=== PATIENT | female | born 1950 | race Two or more races ===

== ENCOUNTER → 2019-03-09 | Outpatient (CLI) | payer OTHER ==
[2019-03-09 09:29] LABS: Basophils # (auto) 0 uL; Basophils % (auto) 0.5 % (0.0-2.0); Eosinophils # (auto) 0.1 uL; Eosinophils % (auto) 1.6 % (0.0-7.0); Hematocrit 44.3 % (36.0-46.0); Hemoglobin 15.2 g/dL (12.2-16.2); Lymphocytes # (auto) 1.6 uL; Lymphocytes % (auto) 24.5 % (10.0-50.0); Mean Corpuscular Hemoglobin 29.9 pg (28.0-32.0); Mean Corpuscular Hgb Conc. 34.2 g/dL (32.0-36.0); Mean Corpuscular Volume 87.3 fL (80.0-100.0); Monocytes # (auto) 0.6 uL; Monocytes % (auto) 8.9 % (0.0-12.0); Neutrophils # (auto) 4.2 uL; Neutrophils % (auto) 64.5 % (37.0-80.0); Nucleated Red Blood Cells % 0.2 %; Platelet Count (auto) 156 10^3/uL (140-450); Red Blood Cells 5.08 10^6/uL (4.0-5.20); Red Cell Distribution Width 12.8 % (11.8-14.3); White Blood Cell 6.4 10^3/uL (4.4-10.8)
[2019-03-09 09:50] LABS: Urine Bacteria NONE SEEN /hpf (None Seen); Urine Blood Negative /uL (Negative); Urine Mucus FEW (None Seen); Urine Specific Gravity 1.017 (1.001-1.035); Urine WBC 6 /hpf (0 - 5)
[2019-03-09 10:08] LABS: Potassium 4.1 mmol/L (3.5-5.1)
[2019-03-09 10:24] LABS: Albumin 3.6 g/dL (3.4-5.0); Bilirubin, Total 0.7 mg/dL (0.2-1.0); Calcium 9.3 mg/dL (8.5-10.1); Total Protein 8.1 g/dL (6.4-8.2)
== END | disposition home or self-care (01) ==
LOC: LAB 08:04
PROVIDERS: ATTEND Internal Medicine Nephrology
DX: I10 Essential (primary) hypertension (principal); E66.9 Obesity, unspecified
CPT/HCPCS: 36415; 80053; 80061; 81001; 84443; 85025

== ENCOUNTER → 2019-04-09 | Outpatient (CLI) | payer OTHER | END | disposition home or self-care (01) | LOC: LAB 07:15 | PROVIDERS: ATTEND Internal Medicine Nephrology | DX: N39.0 Urinary tract infection, site not specified (principal) | CPT/HCPCS: 87086 ==

== ENCOUNTER → 2019-05-07 | Outpatient (CLI) | payer OTHER ==
[2019-05-07 08:21] LABS: Urine Bacteria NONE SEEN /hpf (None Seen); Urine Blood Negative /uL (Negative); Urine Budding Yeast OCCASIONAL /hpf (None Seen); Urine Specific Gravity 1.042 (1.001-1.035); Urine WBC 1 /hpf (0 - 5)
== END | disposition home or self-care (01) ==
LOC: LAB 07:16
PROVIDERS: ATTEND Internal Medicine Nephrology
DX: N39.0 Urinary tract infection, site not specified (principal)
CPT/HCPCS: 81001; 87086; 87088; 87186

== ENCOUNTER 2019-05-18 10:03 | Inpatient (IN) | payer OTHER ==
[~2019-05-18] VITALS: Ht 162.6 cm; Wt 87.4 kg
[2019-05-18] MEDS ORDERED: SODIUM CHLORIDE 0.9% 1,000 ML IVB ONE (10:38)
[2019-05-18] MEDS ORDERED: SODIUM CHLORIDE 0.9% 1,000 ML IV ONE (10:38)
[2019-05-18 11:06] LABS: Basophils # (auto) 0 10 ^3/uL (0-0.2); Basophils % (auto) 0.2 % (0.0-2.0); Eosinophils # (auto) 0 10 ^3/uL (0-0.8); Hemoglobin 16.1 g/dL (12.2-16.2); Mean Corpuscular Hemoglobin 29.8 pg (28.0-32.0); Monocytes # (auto) 0.7 10 ^3/uL (0-1.3)
[2019-05-18 11:07] LABS: Lymphocytes # (auto) 0.9 10 ^3/uL (0.4-5.4); Lymphocytes % (auto) 9.6 % (10.0-50.0); Mean Corpuscular Hgb Conc. 28.2 g/dL (32.0-36.0); Mean Corpuscular Volume 105.7 fL (80.0-100.0); Monocytes % (auto) 7.6 % (0.0-12.0); Neutrophils # (auto) 7.7 10 ^3/uL (1.6-8.6); Neutrophils % (auto) 82.6 % (37.0-80.0); Platelet Count (auto) 189 10^3/uL (140-450); Red Cell Distribution Width 15.6 % (11.8-14.3); White Blood Cell 9.3 10^3/uL (4.4-10.8)
[2019-05-18 11:08] LABS: Hematocrit 57.1 % (36.0-46.0)
[2019-05-18 11:18] LABS: INR 1.13 (0.9-1.15); Partial Thromboplastin Time 22.9 sec (23.64-32.05)
[2019-05-18 11:23] LABS: Albumin 3.8 g/dL (3.4-5.0); Anion Gap 23 (5-15); Blood Alcohol < 3.0 mg/dL (0-5); Blood Urea Nitrogen 48 mg/dL (7-18); Calcium 9.9 mg/dL (8.5-10.1); Carbon Dioxide 11 mmol/L (21-32); Chloride 113 mmol/L (98-107); Potassium 4.6 mmol/L (3.5-5.1); Sodium 147 mmol/L (136-145)
[2019-05-18 11:27] LABS: Alanine Aminotransferase 62 U/L (13-56); Alkaline Phosphatase 173 U/L (45-117); Aspartate Aminotransferase 51 U/L (15-37); Bilirubin, Total 0.7 mg/dL (0.2-1.0); GFR African American 22 mL/min; GFR Non-African American 18 mL/min; Total Protein 8.7 g/dL (6.4-8.2)
[2019-05-18] MEDS: SODIUM CHLORIDE 0.9% 1,000 ML IV SCH ×3 (11:43→20:31)
[2019-05-18] MEDS ORDERED: DEXTROSE (50%) 50ML SYRG IV PRN (11:45)
[2019-05-18 12:29] LABS: Glucose 1323 mg/dL (74-106)
[2019-05-18] MEDS: InsuLIN R (HUMAN) 100 UNITS in SODIUM CHL 0.9% 99 ML IV SCH ×2 (12:48→22:44)
[2019-05-18 13:28] LABS: BUN/Creatinine Ratio 18.7; Calcium 9.8 mg/dL (8.5-10.1); Potassium 4.6 mmol/L (3.5-5.1)
[2019-05-18 13:35] LABS: Lactic Acid w/Reflex 2.5 mmol/L (0.4-2.0)
[2019-05-18 13:37] LABS: Phosphorus 4.2 mg/dL (2.5-4.90)
[2019-05-18] MEDS ORDERED: ONDANSETRON HCL 4 MG/2 ML VIAL IV PRN (13:45)
[2019-05-18] MEDS ORDERED: MORPHINE SULF INJ 2 MG/ML SYRINGE 1ML IV PRN ×2 (13:45)
[2019-05-18] MEDS ORDERED: ACETAMINOPHEN 500 MG TAB PO PRN (13:45)
[2019-05-18] MEDS ORDERED: InsuLIN REG 1unit/0.01ml Soln (100units/ml) IV ONE (13:45)
[2019-05-18] MEDS ORDERED: NITROGLYCERIN 0.4 MG SL TAB SL PRN (13:45)
[2019-05-18] MEDS: ACCU-CHEK COMFORT CURVE STRIP VI SCH ×6 (14:42→22:29)
[2019-05-18 14:43] LABS: Urine WBC None Seen /hpf (0 - 5)
[2019-05-18 15:01] LABS: Urine Bacteria NONE SEEN /hpf (None Seen); Urine Blood 1+ /uL (Negative); Urine Mucus FEW (None Seen); Urine Specific Gravity 1.032 (1.001-1.035)
[2019-05-18 15:05] LABS: Alcohol, Urine < 3.0 mg/dL (0-5); Amphetamine Screen, Urine NEGATIVE (NEGATIVE); Barbiturate Scree,Urine NEGATIVE (NEGATIVE); Benzodiazephine Screen, Urine NEGATIVE (NEGATIVE); Cannabinoid Screen, Urine NEGATIVE (NEGATIVE); Cocaine Screen, Urine NEGATIVE (NEGATIVE); Opiate Scree,Urine NEGATIVE (NEGATIVE); Phencyclidine Screen, Urine NEGATIVE (NEGATIVE)
[2019-05-18] MEDS ORDERED: SODIUM CHLORIDE 0.9% 1,000 ML IV SCH (15:43)
[2019-05-18] MEDS ORDERED: LORazepam 2MG/ML-1ML VIAL IV ONE (21:45)
[2019-05-18] MEDS: METOPROLOL TARTRATE 25 MG TAB PO SCH (22:00)
[2019-05-18 22:27] LABS: Anion Gap 10 (5-15); BUN/Creatinine Ratio 22.6; Blood Urea Nitrogen 42 mg/dL (7-18); Calcium 9.6 mg/dL (8.5-10.1); Carbon Dioxide 20 mmol/L (21-32); Chloride 137 mmol/L (98-107); GFR African American 35 mL/min; GFR Non-African American 29 mL/min; Glucose 391 mg/dL (74-106); Potassium 3.4 mmol/L (3.5-5.1)
[2019-05-18] MEDS: FAMOTIDINE (10MG/ML) 2ML VL IV SCH (22:28)
[2019-05-18 22:31] LABS: Sodium 167 mmol/L (136-145)
[2019-05-18] MEDS ORDERED: SOD CHL 0.45% 1,000 ML IV SCH (22:45)
[2019-05-19] MEDS: ACCU-CHEK COMFORT CURVE STRIP VI SCH ×13 (00:08→22:49)
[2019-05-19] MEDS: SODIUM CHLORIDE 0.9% 1,000 ML IV SCH ×2 (00:23→08:04)
[2019-05-19 05:29] LABS: BUN/Creatinine Ratio 24.6; Calcium 9.6 mg/dL (8.5-10.1); Potassium 3.4 mmol/L (3.5-5.1)
[2019-05-19] MEDS ORDERED: POTASSIUM CHL 20 Meq TABLET PO ONE (06:15)
[2019-05-19] MEDS ORDERED: SOD CHL 0.45% 1,000 ML IV SCH (06:45)
[2019-05-19 06:51] LABS: Urine Amorphous Crystal FEW /hpf (None Seen); Urine Bacteria NONE SEEN /hpf (None Seen); Urine Blood 1+ /uL (Negative); Urine Mucus FEW (None Seen); Urine Specific Gravity 1.032 (1.001-1.035); Urine WBC 30 /hpf (0 - 5); Urine WBC Clumps PRESENT /hpf (None Seen)
[2019-05-19] MEDS ORDERED: DEXTROSE (50%) 50ML SYRG IV PRN ×2 (08:30→09:45)
[2019-05-19] MEDS ORDERED: INSULIN LANTUS (GLARGINE) 1 /0.01ml (100units/ml) SC SCH (08:30)
[2019-05-19] MEDS: SOD CHL 0.45% 1,000 ML IV SCH ×2 (08:51→09:30)
[2019-05-19] MEDS ORDERED: LORazepam 0.5 MG TAB PO PRN (09:30)
[2019-05-19] MEDS ORDERED: D5W 5% 1,000 ML IV ONE (09:45)
[2019-05-19] MEDS: D5W 5% IV SCH ×2 (09:53→14:02)
[2019-05-19] MEDS: FAMOTIDINE (10MG/ML) 2ML VL IV SCH (09:56)
[2019-05-19] MEDS: METOPROLOL TARTRATE 25 MG TAB PO SCH ×2 (09:56→23:57)
[2019-05-19] MEDS ORDERED: ACCU-CHEK COMFORT CURVE STRIP VI SCH (12:00)
[2019-05-19] MEDS ORDERED: InsuLIN REG 1unit/0.01ml Soln (100units/ml) SC SCH (12:00)
[2019-05-19] MEDS: InsuLIN REG 1unit/0.01ml Soln (100units/ml) SC SCH ×3 (12:35→22:46)
[2019-05-19 14:04] LABS: Basophils # (auto) 0.1 10 ^3/uL (0-0.2); Basophils % (auto) 0.5 % (0.0-2.0); Eosinophils # (auto) 0.1 10 ^3/uL (0-0.8); Eosinophils % (auto) 0.4 % (0.0-7.0); Hemoglobin 14.3 g/dL (12.2-16.2); Lymphocytes # (auto) 1.9 10 ^3/uL (0.4-5.4); Lymphocytes % (auto) 13.6 % (10.0-50.0); Mean Corpuscular Hemoglobin 29.7 pg (28.0-32.0); Mean Corpuscular Hgb Conc. 33.3 g/dL (32.0-36.0); Mean Corpuscular Volume 89.1 fL (80.0-100.0); Monocytes # (auto) 0.9 10 ^3/uL (0-1.3); Monocytes % (auto) 6.4 % (0.0-12.0); Neutrophils # (auto) 11.3 10 ^3/uL (1.6-8.6); Neutrophils % (auto) 79.1 % (37.0-80.0); Platelet Count (auto) 128 10^3/uL (140-450); Red Blood Cells 4.83 10^6/uL (4.0-5.20); Red Cell Distribution Width 14.1 % (11.8-14.3); White Blood Cell 14.3 10^3/uL (4.4-10.8)
[2019-05-19] MEDS ORDERED: InsuLIN REG 1unit/0.01ml Soln (100units/ml) IV ONE (14:15)
[2019-05-19 14:23] LABS: BUN/Creatinine Ratio 24.5; Calcium 8.7 mg/dL (8.5-10.1); Potassium 3.7 mmol/L (3.5-5.1)
[2019-05-19] MEDS ORDERED: cefTRIAXone 1GM/50ML D5W 50 ML IV ONE (16:45)
[2019-05-19] MEDS ORDERED: D5W 5% 1,000 ML IV SCH (19:30)
[2019-05-19] MEDS: INSULIN LANTUS (GLARGINE) 1 /0.01ml (100units/ml) SC SCH (22:47)
[2019-05-20] VITALS (8 sets, daily range): BP systolic 110–131; BP diastolic 55–81
--- NOTE | 2019-05-20 01:23 | NUR ---
received report from er nurse poc reviewed
--- NOTE | 2019-05-20 01:35 | NUR ---
pt transferred into rm 261, resp even and unlabored on 1.5 l n/c. denies pain or discomfort, ax3, sluggish responds appropriate, d5 iv fluid infusing as ordered, side rails up call light within reach, pt able to follow directions
[2019-05-20] MEDS: ACCU-CHEK COMFORT CURVE STRIP VI SCH ×7 (02:00→21:17)
[2019-05-20] MEDS: InsuLIN REG 1unit/0.01ml Soln (100units/ml) SC SCH ×6 (04:15→21:19)
[2019-05-20] MEDS ORDERED: AMLO5TAB15 PO ×2 (04:28→09:46)
[2019-05-20] MEDS ORDERED: CAR3125T PO (04:29)
[2019-05-20] MEDS ORDERED: ASPI-404 PO (04:30)
--- NOTE | 2019-05-20 04:30 | NUR ---
resting quietly arousable no s/s of discomfort
--- NOTE | 2019-05-20 05:46 | NUR ---
awake more alert, no c/o discomfort, call light within reach,
[2019-05-20 05:53] LABS: Basophils # (auto) 0 10 ^3/uL (0-0.2); Basophils % (auto) 0.3 % (0.0-2.0); Eosinophils # (auto) 0.1 10 ^3/uL (0-0.8); Eosinophils % (auto) 1.1 % (0.0-7.0); Hematocrit 43.7 % (36.0-46.0); Hemoglobin 14.7 g/dL (12.2-16.2); Lymphocytes # (auto) 2.8 10 ^3/uL (0.4-5.4); Mean Corpuscular Hemoglobin 29.6 pg (28.0-32.0); Mean Corpuscular Hgb Conc. 33.6 g/dL (32.0-36.0); Mean Corpuscular Volume 87.9 fL (80.0-100.0); Monocytes # (auto) 0.8 10 ^3/uL (0-1.3); Monocytes % (auto) 6.8 % (0.0-12.0); Neutrophils # (auto) 7.4 10 ^3/uL (1.6-8.6); Neutrophils % (auto) 66.8 % (37.0-80.0); Nucleated Red Blood Cells % 0.1 %; Platelet Count (auto) 117 10^3/uL (140-450); Red Blood Cells 4.98 10^6/uL (4.0-5.20); Red Cell Distribution Width 14.1 % (11.8-14.3); White Blood Cell 11.1 10^3/uL (4.4-10.8)
[2019-05-20 06:08] LABS: Potassium 3.1 mmol/L (3.5-5.1)
[2019-05-20 06:13] LABS: Albumin 2.8 g/dL (3.4-5.0); BUN/Creatinine Ratio 25.4; Calcium 9.1 mg/dL (8.5-10.1)
[2019-05-20 06:14] LABS: Bilirubin, Total 0.7 mg/dL (0.2-1.0); Total Protein 6.9 g/dL (6.4-8.2)
--- NOTE | 2019-05-20 06:36 | NUR ---
pt awoke confused
--- NOTE | 2019-05-20 07:30 | NUR ---
Opening Shift Note Assumed care of patient, awake and alert, able to tell me her name, , place, still forgetful, doesn't know why she is in the hospital, informed patient, patient made aware, asking me Is it real?, asking about her and explained why we won't allow visitor at this time, patient verbalized understanding, will keep orientation. No S/S of distress/SOB or pain noted, only right lower leg. Instructed on POC and to call for assist PRN, will continue to monitor for changes Q1hr and PRN.
--- NOTE | 2019-05-20 07:35 | NUR ---
report given to am nurse poc reviewed
--- NOTE | 2019-05-20 07:47 | NUR ---
Received a call from Dr. Pack, informed with labs result this morning. Received new orders for no limit of water intake by oral, Potassium and Accu check every 4 hours. Patient verbalized understanding, will carry out.
[2019-05-20] MEDS ORDERED: ACCU-CHEK COMFORT CURVE STRIP VI SCH (08:00)
[2019-05-20] MEDS ORDERED: POTASSIUM EFFERVESENT TAB 25 MEQ PO ONE (08:00)
--- NOTE | 2019-05-20 08:20 | NUR ---
Patient sitting up on the bed for having breakfast. Patient was informed that okay to drink plenty of water with no limit, still checking her blood sugar as order. Room air O2 saturation 95-96%.
[2019-05-20] MEDS: cefTRIAXone 1GM/50ML D5W 50 ML IV SCH (08:22)
--- NOTE | 2019-05-20 09:00 | NUR ---
Talked to her on the phone, updated the plan of care, Porfirio would like to talk to Doctor as well, will inform MD. Transfer his phone to talk to patient. Patient had breakfast around 25%, her brought dentures, patient made aware.
[2019-05-20] MEDS: FAMOTIDINE (10MG/ML) 2ML VL IV SCH (09:30)
[2019-05-20] MEDS: METOPROLOL TARTRATE 25 MG TAB PO SCH ×2 (09:31→22:05)
[2019-05-20] MEDS: INSULIN LANTUS (GLARGINE) 1 /0.01ml (100units/ml) SC SCH ×2 (09:32→22:04)
[2019-05-20] MEDS ORDERED: CARV6.2551 PO (09:46)
--- NOTE | 2019-05-20 10:11 | NUR ---
Patient lying on the bed, follow direction, alert and oriented. Able to take a nap at this time.
[2019-05-20] MEDS: POTASSIUM CHLORIDE 20 MEQ in D5W 5% 1,000 ML IV SCH (11:08)
--- NOTE | 2019-05-20 12:15 | NUR ---
Porfirio () called and talking to patient on the phone, made aware about transfer to [facility].
--- NOTE | 2019-05-20 12:38 | NUR ---
[facility] pt transferred to [facility] transfered to [facility] via hospital bed on personnel monitor (Tele # [phone]). All patient medications and personal belongings transfered with patient to receiving floor including dentures. Patient care transfered to Shanita LAZAR.
--- NOTE | 2019-05-20 12:50 | NUR ---
TRANSFERRED FROM [facility] PATIENT TRANSFERRED TO TELEMETRY FLOOR FROM [facility]. THE PATIENT IS AWAKE AND ALERT. NO S/S OF DISTRESS OR SOB. PATIENT DENIES HAVING ANY PAIN AT THIS TIME. BED IN LOWEST AND LOCKED POSITION WITH SIDE RAILS UP X2 AND CALL LIGHT WITHIN REACH. PATIENT EDUCATED TO CALL IF NEEDS ASSISTANCE. WILL CONTINUE TO MONITOR.
--- NOTE | 2019-05-20 19:00 | NUR ---
PATIENT IS AO X4 AND AMBULATORY. SHE HAS NO CURRENT [id number] OF PAIN OR SHORTNESS OF BREATH. BED IS LOCKED IN LOWEST POSITION WITH SIDE RAILS UP X2. WILL CONTINUE TO MONITOR.
[2019-05-21] MEDS: ACCU-CHEK COMFORT CURVE STRIP VI SCH ×5 (00:26→18:02)
[2019-05-21] MEDS: InsuLIN REG 1unit/0.01ml Soln (100units/ml) SC SCH ×6 (00:27→23:34)
[2019-05-21 05:00] VITALS: BP 111/66
[2019-05-21 05:59] LABS: Potassium 3.5 mmol/L (3.5-5.1)
--- NOTE | 2019-05-21 06:00 | NUR ---
PRE-MIXED IV FLUIDS WERE PLACED IN REFRIGERATOR. WILL ATTEMPT TO BRING FLUIDS TO APPROPRIATE TEMPERATURE BEFORE ADMINISTERING TO PATIENT.
[2019-05-21 06:03] LABS: BUN/Creatinine Ratio 21.1; Calcium 8.5 mg/dL (8.5-10.1)
--- NOTE | 2019-05-21 08:00 | NUR ---
Morning note Patient resting in bed with even and unlabored respirations on room air, no distress noted. Instructed patient on POC, fall precautions and to call for assistance as needed. Patient verbalized understanding. Fall precautions in place with call light within reach.
[2019-05-21] MEDS: cefTRIAXone 1GM/50ML D5W 50 ML IV SCH (08:48)
[2019-05-21] MEDS: FAMOTIDINE (10MG/ML) 2ML VL IV SCH (08:48)
[2019-05-21] MEDS: METOPROLOL TARTRATE 25 MG TAB PO SCH ×2 (08:49→23:31)
[2019-05-21] MEDS: POTASSIUM CHLORIDE 20 MEQ in D5W 5% 1,000 ML IV SCH (08:50)
[2019-05-21 09:00] VITALS: BP 113/63
[2019-05-21] MEDS: INSULIN LANTUS (GLARGINE) 1 /0.01ml (100units/ml) SC SCH ×2 (09:07→23:32)
--- NOTE | 2019-05-21 10:09 | NUR ---
was at bedside - Dr. Pack This RN was at bedside. Orders received and read back to verify.
--- NOTE | 2019-05-21 10:14 | NUR ---
Updated patient's spouse via telephone Updated Porfirio on POC. Phone call transferred to patient's bedside phone.
--- NOTE | 2019-05-21 12:00 | NUR ---
Santos catheter removed per MD order Santos catheter removed with clean technique after catheter balloon deflated. Patient tolerated well. 500ml of clear yellow urine drained from catheter bag. Instructed patient on fall precautions and to call for assistance when using the restroom. Patient verbalized understanding. Fall precautions in place with call light within reach.
--- NOTE | 2019-05-21 12:39 | NUR ---
RE: OB consult Patient to follow up outpatient per Dr. Cheema.
[2019-05-21 13:00] VITALS: BP 126/71
--- NOTE | 2019-05-21 13:07 | NUR ---
RE: POC glucose result - notified MD Notified Dr. Pack RE: POC glucose result. MD verbalized understanding. Orders received and read back to verify.
[2019-05-21] MEDS ORDERED: DEXTROSE (50%) 50ML SYRG IV PRN (13:15)
--- NOTE | 2019-05-21 14:51 | NUR ---
Patient resting in bed with eyes closed Respirations even and unlabored on room air, no distress noted. Fall precautions in place with call light within reach.
--- NOTE | 2019-05-21 15:06 | NUR ---
assessment Patient is a 68 year old female who is alert and oriented. Patients cognitive abilities are intact. Prior to admission patient lived home with family and functioned independently. Patient informed me she is able to care for her own ADLs. Per patient she will return home to her prior living arrangements post discharge and family will transport her home. Per patient she has a cane for home use. Per patient her PCP is Dr Pack. Patient is new diagnosed diabetes. Patient will benefit from diabetes education. I informed patient she has a right to speak to a social group worker regarding all care. I informed patient she has a right to participate in any and all discharge planning. Patient does not have a POA and advanced directive. I have offered patient information on POA and advanced directives. I informed the patient the advantages and benefits of having an Advanced Directive. Patient verbalized understanding and agreed to discharge plan. Addendum: 05/21/19 at 1510 by Isi ANGELES Amended: Links added.
--- NOTE | 2019-05-21 16:20 | NUR ---
Episode of urinary incontinence Patient called nursing station from hospital phone to notify staff that she had urinated. Patient stated "It just came over me so fast." Partial bed linen changed. New fall precaution socks provided. Instructed patient to notify staff with assistance to restroom. Patient verbalized understanding. Patient is alert and oriented. Call light within reach.
[2019-05-21 16:55] VITALS: BP 109/66
--- NOTE | 2019-05-21 18:42 | NUR ---
Closing note Patient resting in bed with eyes closed; respirations even and unlabored on room air. Fall precautions in place with call light within reach.
--- NOTE | 2019-05-21 19:13 | NUR ---
Care endorsed to Carli Richards RN.
[2019-05-21 21:00] VITALS: BP 112/58
[2019-05-22] MEDS: ACCU-CHEK COMFORT CURVE STRIP VI SCH ×3 (00:10→12:03)
[2019-05-22 05:00] VITALS: BP 103/54
[2019-05-22] MEDS: InsuLIN REG 1unit/0.01ml Soln (100units/ml) SC SCH ×2 (06:28→12:22)
[2019-05-22 06:45] LABS: Basophils # (auto) 0 10 ^3/uL (0-0.2); Basophils % (auto) 0.3 % (0.0-2.0); Eosinophils # (auto) 0.1 10 ^3/uL (0-0.8); Eosinophils % (auto) 1.6 % (0.0-7.0); Hematocrit 38.8 % (36.0-46.0); Lymphocytes # (auto) 2.3 10 ^3/uL (0.4-5.4); Lymphocytes % (auto) 31.5 % (10.0-50.0); Mean Corpuscular Hemoglobin 29.4 pg (28.0-32.0); Mean Corpuscular Hgb Conc. 33.5 g/dL (32.0-36.0); Mean Corpuscular Volume 87.7 fL (80.0-100.0); Monocytes # (auto) 0.8 10 ^3/uL (0-1.3); Monocytes % (auto) 11.1 % (0.0-12.0); Neutrophils % (auto) 55.5 % (37.0-80.0); Nucleated Red Blood Cells % 0.2 %; Platelet Count (auto) 70 10^3/uL (140-450); Red Blood Cells 4.42 10^6/uL (4.0-5.20); Red Cell Distribution Width 13.6 % (11.8-14.3); White Blood Cell 7.2 10^3/uL (4.4-10.8)
[2019-05-22 07:00] LABS: BUN/Creatinine Ratio 16.3; Calcium 8.3 mg/dL (8.5-10.1)
--- NOTE | 2019-05-22 08:00 | NUR ---
Morning note Patient resting in bed with even and unlabored respirations on room air; eyes closed, no distress noted. Fall precautions in place with call light within reach.
[2019-05-22 09:00] VITALS: BP 118/63
[2019-05-22] MEDS: METOPROLOL TARTRATE 25 MG TAB PO SCH (09:42)
[2019-05-22] MEDS: FAMOTIDINE (10MG/ML) 2ML VL IV SCH (09:42)
[2019-05-22] MEDS: cefTRIAXone 1GM/50ML D5W 50 ML IV SCH (09:43)
[2019-05-22] MEDS: INSULIN LANTUS (GLARGINE) 1 /0.01ml (100units/ml) SC SCH (10:04)
[2019-05-22 13:00] VITALS: BP 126/75
--- NOTE | 2019-05-22 13:25 | NUR ---
RE: Lab Notified Dr. Pack RE: recent PLT lab value. verbalized understanding.
--- NOTE | 2019-05-22 14:41 | NUR ---
Discharge Discharge education and paperwork provided to the patient per MD order. Patient verbalized understanding. Diabetic education provided as well as education provided on newly prescribed medications. Patient verbalized understanding. IV removed with clean technique, catheter intact. Dressing applied. Patient tolerated well, no trauma to site. Telemonitor removed and returned to telemonitor tech. Patient reports having all personal belongings. Respirations even and unlabored on room air, no distress noted.
--- NOTE | 2019-05-22 14:46 | NUR ---
Called patient's spouse to notify patient is ready to be transported home. Porfirio verbalized understanding.
--- NOTE | 2019-05-22 15:02 | NUR ---
Transportation arrived to hospital Patient transferred to hospital lobby via wheelchair accompanied by staff member. Respirations even and unlabored on room air, no distress noted. Patient reports having all personal belongings.
== END 2019-05-22 15:02 | disposition home or self-care (01) | DRG 637 ==
LOC: ER 10:03 → TELE 10:04 → ICU CENTRL 05-19 23:05 → DOU IN ICU 05-19 23:09 → TELE-WESTW 05-20 12:55
PROVIDERS: ADMIT Nurse Practitioner Acute Care; ATTEND Internal Medicine Nephrology
DX: E13.10 Other specified diabetes mellitus with ketoacidosis without coma (principal); G93.41 Metabolic encephalopathy; N17.0 Acute kidney failure with tubular necrosis; E87.0 Hyperosmolality and hypernatremia; E86.0 Dehydration; E66.9 Obesity, unspecified; I10 Essential (primary) hypertension; Z68.33 Body mass index [BMI] 33.0-33.9, adult; Z79.899 Other long term (current) drug therapy
CPT/HCPCS: 36415; 36600; 70450; 71045; 80048; 80053; 80307; 80320; 81001; 82010; 82805; 82962; 83036; 83605; 83735; 83930; 84100; 84295; 84484; 85025; 85610; 85730; 87040; 87081; 87086; 93005; 93971; G0378; J0696; J1815; J3490

== ENCOUNTER → 2019-06-26 | Outpatient (CLI) | payer OTHER ==
[~2019-06-26] MED LIST: AMLO5TAB15 PO; ASPI-404 PO; CARV6.2551 PO
[2019-06-26 07:30] LABS: Basophils # (auto) 0 10 ^3/uL (0-0.2); Basophils % (auto) 0.5 % (0.0-2.0); Eosinophils # (auto) 0.1 10 ^3/uL (0-0.8); Eosinophils % (auto) 1.3 % (0.0-7.0); Hematocrit 40.2 % (36.0-46.0); Hemoglobin 13.5 g/dL (12.2-16.2); Lymphocytes # (auto) 1.4 10 ^3/uL (0.4-5.4); Lymphocytes % (auto) 28.1 % (10.0-50.0); Mean Corpuscular Hemoglobin 30.7 pg (28.0-32.0); Mean Corpuscular Hgb Conc. 33.6 g/dL (32.0-36.0); Mean Corpuscular Volume 91.4 fL (80.0-100.0); Monocytes # (auto) 0.5 10 ^3/uL (0-1.3); Monocytes % (auto) 9.7 % (0.0-12.0); Neutrophils # (auto) 3.1 10 ^3/uL (1.6-8.6); Neutrophils % (auto) 60.4 % (37.0-80.0); Nucleated Red Blood Cells % 0.1 %; Platelet Count (auto) 174 10^3/uL (140-450); Red Cell Distribution Width 14.2 % (11.8-14.3); White Blood Cell 5.2 10^3/uL (4.4-10.8)
[2019-06-26 08:13] LABS: BUN/Creatinine Ratio 15.1; Calcium 8.5 mg/dL (8.5-10.1); Potassium 3.5 mmol/L (3.5-5.1)
== END | disposition home or self-care (01) ==
LOC: LAB 07:08
PROVIDERS: ATTEND Internal Medicine Nephrology
DX: E11.9 Type 2 diabetes mellitus without complications (principal); D69.6 Thrombocytopenia, unspecified
CPT/HCPCS: 36415; 80048; 84439; 84443; 85025

== ENCOUNTER → 2020-04-29 | Outpatient (CLI) | payer OTHER ==
[~2020-04-29] MED LIST changes: +AMLO-489 PO; -AMLO5TAB15 PO; -ASPI-404 PO; +ASPI-543 PO
[2020-04-29 08:11] LABS: Basophils # (auto) 0 10 ^3/uL (0-0.2); Basophils % (auto) 0.5 % (0.0-2.0); Eosinophils # (auto) 0.1 10 ^3/uL (0-0.8); Eosinophils % (auto) 1.7 % (0.0-7.0); Hematocrit 39.6 % (36.0-46.0); Hemoglobin 13.5 g/dL (12.2-16.2); Lymphocytes # (auto) 1.9 10 ^3/uL (0.4-5.4); Lymphocytes % (auto) 27.7 % (10.0-50.0); Mean Corpuscular Hemoglobin 29.5 pg (28.0-32.0); Monocytes # (auto) 0.6 10 ^3/uL (0-1.3); Monocytes % (auto) 8.9 % (0.0-12.0); Neutrophils # (auto) 4.1 10 ^3/uL (1.6-8.6); Neutrophils % (auto) 61.2 % (37.0-80.0); Nucleated Red Blood Cells % 0.1 %; Platelet Count (auto) 162 10^3/uL (140-450); Red Blood Cells 4.55 10^6/uL (4.0-5.20); Red Cell Distribution Width 12.8 % (11.8-14.3); White Blood Cell 6.8 10^3/uL (4.4-10.8)
[2020-04-29 08:30] LABS: Urine Bacteria FEW /hpf (None Seen); Urine Blood Negative /uL (Negative); Urine Mucus FEW (None Seen); Urine WBC 21 /hpf (0 - 5)
[2020-04-29 08:46] LABS: Albumin 3.6 g/dL (3.4-5.0); BUN/Creatinine Ratio 16.5; Calcium 9.4 mg/dL (8.5-10.1); Potassium 4.3 mmol/L (3.5-5.1)
[2020-04-29 08:50] LABS: Bilirubin, Total 0.7 mg/dL (0.2-1.0); Protein, Urine 7.9 mg/dL (0.0-11.9); Total Protein 7.8 g/dL (6.4-8.2)
== END | disposition home or self-care (01) ==
LOC: LAB 07:23
PROVIDERS: ATTEND Internal Medicine Nephrology
DX: E11.9 Type 2 diabetes mellitus without complications (principal); I10 Essential (primary) hypertension
CPT/HCPCS: 36415; 80053; 80061; 81001; 82570; 83036; 84156; 85025

== ENCOUNTER → 2021-05-08 | Outpatient (CLI) | payer OTHER ==
[2021-05-08 07:36] LABS: Basophils # (auto) 0 10 ^3/uL (0-0.2); Basophils % (auto) 0.3 % (0.0-2.0); Eosinophils # (auto) 0.1 10 ^3/uL (0-0.8); Hematocrit 38.9 % (36.0-46.0); Hemoglobin 13.2 g/dL (12.2-16.2); Lymphocytes # (auto) 1.7 10 ^3/uL (0.4-5.4); Lymphocytes % (auto) 31.5 % (10.0-50.0); Mean Corpuscular Hemoglobin 29.6 pg (28.0-32.0); Mean Corpuscular Volume 87.3 fL (80.0-100.0); Monocytes # (auto) 0.5 10 ^3/uL (0-1.3); Neutrophils # (auto) 2.9 10 ^3/uL (1.6-8.6); Neutrophils % (auto) 56.2 % (37.0-80.0); Nucleated Red Blood Cells % 0.1 %; Red Blood Cells 4.46 10^6/uL (4.0-5.20); Red Cell Distribution Width 13.4 % (11.8-14.3); White Blood Cell 5.3 10^3/uL (4.4-10.8)
[2021-05-08 07:50] LABS: Potassium 4.2 mmol/L (3.5-5.1)
[2021-05-08 07:55] LABS: Albumin 3.7 g/dL (3.4-5.0); BUN/Creatinine Ratio 15.7; Calcium 9.1 mg/dL (8.5-10.1)
[2021-05-08 07:58] LABS: Bilirubin, Total 0.8 mg/dL (0.2-1.0); Total Protein 7.4 g/dL (6.4-8.2)
== END | disposition home or self-care (01) ==
LOC: LAB 06:36
PROVIDERS: ATTEND Internal Medicine Nephrology
DX: E11.9 Type 2 diabetes mellitus without complications (principal)
CPT/HCPCS: 36415; 80053; 80061; 83036; 85025

== ENCOUNTER → 2023-12-04 | Outpatient (CLI) | payer OTHER ==
[~2023-12-04] MED LIST changes: -AMLO-489 PO; +AMLO1TAB22 PO
[2023-12-04 08:22] LABS: Anion Gap 6 (5-15); Carbon Dioxide 28 mmol/L (20-31); Chloride 107 mmol/L (98-107); Potassium 4.1 mmol/L (3.5-5.1); Sodium 141 mmol/L (136-145)
[2023-12-04 08:24] LABS: Calcium 9.9 mg/dL (8.7-10.4)
[2023-12-04 08:28] LABS: BUN/Creatinine Ratio 16.5 (10.0-20.0); Blood Urea Nitrogen 16 mg/dL (9-23); Glucose 152 mg/dL (74-106)
== END | disposition home or self-care (01) ==
LOC: LAB 07:19
PROVIDERS: ATTEND Nurse Practitioner Family
DX: Q44.6 Cystic disease of liver (principal)
CPT/HCPCS: 36415; 80048

== ENCOUNTER → 2024-01-02 | Outpatient (CLI) | payer OTHER ==
[2024-01-02 08:05] LABS: Basophils # (auto) 0 10 ^3/uL (0-0.2); Basophils % (auto) 0.5 % (0.0-2.0); Eosinophils # (auto) 0.1 10 ^3/uL (0-0.8); Eosinophils % (auto) 1.6 % (0.0-7.0); Hematocrit 45.7 % (36.0-46.0); Hemoglobin 15.1 g/dL (12.2-16.2); Lymphocytes # (auto) 1.3 10 ^3/uL (0.4-5.4); Lymphocytes % (auto) 22.5 % (10.0-50.0); Mean Corpuscular Hemoglobin 29.4 pg (28.0-32.0); Mean Corpuscular Hgb Conc. 33.2 g/dL (32.0-36.0); Mean Corpuscular Volume 88.6 fL (80.0-100.0); Monocytes # (auto) 0.5 10 ^3/uL (0-1.3); Monocytes % (auto) 8.7 % (0.0-12.0); Neutrophils # (auto) 3.7 10 ^3/uL (1.6-8.6); Neutrophils % (auto) 66.7 % (37.0-80.0); Platelet Count (auto) 147 10^3/uL (140-450); Red Blood Cells 5.16 10^6/uL (4.0-5.20); Red Cell Distribution Width 13.2 % (11.8-14.3); White Blood Cell 5.6 10^3/uL (4.4-10.8)
[2024-01-02 09:22] LABS: Creatinine, Urine 136.02 mg/dL (30.0-125.0)
[2024-01-02 09:27] LABS: Alanine Aminotransferase 27 U/L (7-40); Alkaline Phosphatase 109 U/L (46-116); Aspartate Aminotransferase 24 U/L (13-40); Calcium 9.8 mg/dL (8.7-10.4); Carbon Dioxide 28 mmol/L (20-31); Chloride 109 mmol/L (98-107); Glucose 148 mg/dL (74-106); LDL Cholesterol 96 mg/dL (< 100); Potassium 4.5 mmol/L (3.5-5.1); Triglycerides 103 mg/dL (< 150)
[2024-01-02 09:28] LABS: Albumin 4.5 g/dL (3.2-4.8); Anion Gap 5 (5-15); BUN/Creatinine Ratio 14.6 (10.0-20.0); Bilirubin, Total 0.7 mg/dL (0.2-1.0); Blood Urea Nitrogen 13 mg/dL (9-23); Cholesterol 152 mg/dL (< 200); HDL Cholesterol 47 mg/dL (40-59); Sodium 142 mmol/L (136-145); Total Protein 7.7 g/dL (5.7-8.2)
== END | disposition home or self-care (01) ==
LOC: LAB 07:43
PROVIDERS: ATTEND Nurse Practitioner Family
DX: E11.21 Type 2 diabetes mellitus with diabetic nephropathy (principal); I10 Essential (primary) hypertension
CPT/HCPCS: 36415; 80053; 80061; 82043; 82570; 83036; 84443; 85025